=== PATIENT | male | born 2000 | race Asian ===

== ENCOUNTER 2024-10-19 16:26 | Emergency (ER) | payer SELFPAY ==
[~2024-10-19] VITALS: Ht 162.6 cm; Wt 54.0 kg
[2024-10-19 16:31] VITALS: O2SAT 97
[2024-10-19] MEDS: SODIUM CHLORIDE 0.9% 1,000 ML IV ONE (17:07)
[2024-10-19 17:16] LABS: BASOPHILS % 1.5 % (0.0-2.0); EOSINOPHILS % 1.5 % (0.0-5.0); HEMATOCRIT. 44.0 % (42.0-52.0); HEMOGLOBIN. 15.4 g/dL (14.0-18.0); LYMPHOCYTES % 36.7 % (20.0-50.0); MEAN PLATELET VOLUME 7.6 fl (7.4-10.4); MONOCYTES % 6.4 % (2.0-8.0); NEUTROPHILS % 53.9 % (40.0-76.0); PLATELET 202 x1000/uL (130-400); RED BLOOD CELL COUNT 5.25 mill/uL (4.7-6.1); RED CELL DISTRIBUTION WIDTH 12.6 % (11.6-14.6)
[2024-10-19 17:24] LABS: BG BASE EXCESS -3.4 mmol/L (-2.0-3.0); BG CARBOXYHEMOGLOBIN 0.3 % (0.5-1.5); BG DEOXYHEMOGLOBIN 0.3 % (0.0-5.0); BG FLOW(L/min) 15.00 L/min; BG FRACTION INSPIRED OXYGEN 80; BG HCO3 ACT 20.9 mmol/L (21.0-28.0); BG METHEMOGLOBIN 0.1 % (0.5-1.5); BG OXYGEN SATURATION 99.7 % (94.0-98.0); BG OXYHEMOGLOBIN 99.3 % (94.0-98.0); BG PCO2 35.8 mmHg (35.0-48.0); BG PH 7.384 (7.350-7.450); BG PO2 411.8 mmHg (83.0-108.0); BG SAMPLE SITE RIGHT BRACHIAL; BG TOTAL HEMOGLOBIN 15.4 g/dL (13.5-17.5); BG VENT MODE MASK - NRB-PARTIAL
[2024-10-19 17:26] LABS: CREATININE 1.2 mg/dL (0.6-1.3)
[2024-10-19 17:27] LABS: ETHANOL BLOOD < 10 mg/dL (<10); UREA NITROGEN BLOOD 15 mg/dL (9-23)
[2024-10-19 17:28] LABS: ASPARTATE AMINOTRANSFERASE 29 IU/L (<34)
[2024-10-19 17:29] LABS: BILIRUBIN DIRECT 0.2 mg/dL (<=3.0); BILIRUBIN TOTAL 0.8 mg/dL (0.1-1.0); PROTEIN TOTAL 7.4 g/dL (6.0-8.3)
[2024-10-19 19:11] VITALS: TEMP 36.4
[2024-10-19 20:00] VITALS: BP 95/64; PULSE 79; RESP 14; O2SAT 99
== END 2024-10-19 20:10 | disposition home or self-care (01) ==
LOC: ER 16:26
DX: R55 Syncope and collapse (principal); R05.9 Cough, unspecified
CPT/HCPCS: 80076; 80048; 80320; 85025; 36415; 71045; 70450; 82805; 82375; 93005; 96360; 99285; 36600; J7030; Z7610; G0480